=== PATIENT | male | born 1935 | race Caucasian/White ===

== ENCOUNTER → 2017-02-13 | Outpatient (CLI) | payer MEDICARE, OTHER ==
[~2017-02-13] MED LIST: ALPR0.254 PO; ALPR0.2550 PO; ASP81CT PO; ASP81TEC PO; BETA1TAB15 PO; CARB15DR87 OT; CHOL400T40 PO; CPR500T PO; CYAN10007 PO; CYAN500L PO; FEXO180T84 PO; GLUC-135 PO; MTP25TSR PO; MULT-961 PO; NEBI5TAB8 PO; OMEG1CAP74 PO; OMEP20TA2 PO; PROP15DR OP; PROP15DR OU; SIMV20TA3 PO; SIMV40TA4 PO; TAMS0.4C2 PO; UBID100C17 PO; VITAMIN D PO
--- NOTE | 2017-02-13 16:09 | Diagnostic Imaging Report ---
PROCEDURE: CT abdomen and pelvis without contrast. TECHNIQUE: Multiple contiguous axial images were obtained through the abdomen and pelvis without the use of intravenous contrast. INDICATION: Left lateral discomfort. FINDINGS: There are calcified pleural plaques seen in the left lung base. This could relate to previous infection. The liver demonstrates multiple hypodense lesions, with the largest in the right hepatic dome measuring 2.4 cm with fluid attenuation, suggestive of multiple cysts. The gallbladder demonstrates no calcified stone. The spleen, the pancreas, and the adrenal glands appear unremarkable. There is a 5 mm nonobstructive stone in the upper pole of the left kidney. No hydronephrosis. Bilateral renal cysts are seen up to 3 cm in the lower pole of the left kidney. The abdominal aorta is normal in caliber. No para-aortic significantly enlarged lymph node is seen. There is no bowel obstruction. The appendix is normal. There is no significant free fluid or fluid collection in the abdomen or pelvis seen. There is diverticulosis in the sigmoid colon. No diverticulitis. There is a small fat-containing left inguinal hernia. 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 IMPRESSION: 1. There is diverticulosis. No diverticulitis. 2. There is a 5 mm nonobstructive upper pole left kidney stone. 3. Small fat-containing left inguinal hernia. Dictated by: Dictated on workstation # [id number]
== END ==
LOC: RAD 14:08
PROVIDERS: ATTEND Internal Medicine
DX: R10.13 Epigastric pain (principal)
CPT/HCPCS: 74176

== ENCOUNTER 2020-02-07 05:35 | Outpatient (RCR) | payer MEDICARE, OTHER ==
[~2020-02-07] VITALS: Ht 154.9 cm; Wt 65.5 kg
[~2020-02-07 05:35] MED LIST changes: +CETI10TA17 PO; +CRAN450T9 PO; +CYAN100088 PO; +DOCU100T7 PO; +GARL100T PO; +METO50TA15 PO; +MULT-851 PO; +OMEP20CA18 PO; +SALM1CAP4 PO; +SIMV40TA25 PO; +UBID100C7 PO
== END 2020-02-07 10:28 | disposition home or self-care (01) ==
LOC: PREOP 05:35
PROVIDERS: ATTEND Surgery
DX: Z01.812 Encounter for preprocedural laboratory examination (principal); K40.90 Unilateral inguinal hernia, without obstruction or gangrene, not specified as recurrent; Z20.828 Contact with and (suspected) exposure to other viral communicable diseases
CPT/HCPCS: 87635

== ENCOUNTER 2020-02-10 12:17 | Day surgery (SDC) | payer MEDICARE, OTHER ==
[~2020-02-10] VITALS: Ht 154.9 cm; Wt 65.5 kg
[2020-02-10] VITALS (9 sets, daily range): BP systolic 137–194; BP diastolic 76–116
--- NOTE | 2020-02-10 12:44 | Progress Note-Pre Operative ---
Pre-Operative Progress Note H&P Reviewed The H&P was reviewed, patient examined and no changes noted. Date Seen by Provider: Feb 10, 2020 Time Seen by Provider: 12:30 Date H&P Reviewed: Feb 10, 2020 Time H&P Reviewed: 12:30 Pre-Operative Diagnosis: recurrent left ing hernia HOSEA LARA MD Feb 10, 2020 12:44
[2020-02-10] MEDS ORDERED: ceFAZolin 2 GM IV Premixed 50 ML IV ONE (12:45)
[2020-02-10] MEDS ORDERED: oxyCODONE/APAP 5/325MG (PERCOCET 5) TABLET PO PRN (12:45)
[2020-02-10] MEDS ORDERED: ACETAMINOPHEN 325 MG TABLET PO PRN (12:45)
[2020-02-10] MEDS ORDERED: ONDANSETRON 4 MG/2 ML (SDV) Z0FRAN IVP PRN ×2 (12:45→15:00)
[2020-02-10] MEDS ORDERED: morphine INJ 10 MG/ML 1ML (SYR OR VIAL) IVP PRN ×2 (12:45)
[2020-02-10] MEDS ORDERED: HYDR-3817 PO ×2 (12:46)
[2020-02-10] MEDS: LACTATED RINGERS 1,000 ML IV PRN ×3 (12:47→16:25)
--- NOTE | 2020-02-10 12:47 | Discharge Inst-Surgical ---
D/C Lap Instructions-JANE New, Converted, or Re-Newed RX: RX on Chart Follow Up Appt in 2 weeks Activity as tolerated No driving for 24 hours No driving while on pain medications Incentive Spirometry use every 2 hours while awake Regular Diet Symptoms to Report: Fever over 101 degree F, Nausea/Vomiting Infection Signs and Symptoms to report: Increased redness, Foul odor of wound, Increased drainage Bathing instructions: May shower Operative Area Clean/Dry; Keep incision clean/dry If any problems/questions: Contact your physician or go to Emergency Room HOSEA LARA MD Feb 10, 2020 12:46
[2020-02-10] MEDS ORDERED: fentaNYL INJECTION 100 MCG/2 ML AMP ONE (12:53)
[2020-02-10 12:55] LABS: BASOPHILS % (AUTO) 1 % (0-10); EOSINOPHILS # (AUTO) 0.1 10^3/uL (0.0-0.3); EOSINOPHILS % (AUTO) 3 % (0-10); HEMATOCRIT 45 % (40-54); HEMOGLOBIN 14.7 G/DL (13.3-17.7); LYMPHOCYTES # (AUTO) 1.9 X 10^3 (1.0-4.0); LYMPHOCYTES % (AUTO) 42 % (12-44); MEAN CORPUSCULAR HEMOGLOBIN 31 PG (25-34); MEAN CORPUSCULAR HGB CONC 33 G/DL (32-36); MEAN CORPUSCULAR VOLUME 93 FL (80-99); MEAN PLATELET VOLUME 10.7 FL (7.4-10.4); MONOCYTES # (AUTO) 0.3 X 10^3 (0.0-1.0); MONOCYTES % (AUTO) 6 % (0-12); NEUTROPHILS # (AUTO) 2.2 X 10^3 (1.8-7.8); NEUTROPHILS % (AUTO) 48 % (42-75); PLATELET COUNT 161 10^3/uL (130-400); RED CELL DISTRIBUTION WIDTH 14.3 % (10.0-14.5); WHITE BLOOD COUNT 4.5 10^3/uL (4.3-11.0)
[2020-02-10] MEDS ORDERED: LIDOCAINE PF 2% 5 ML (XYLOCAINE) VIAL ONE (12:57)
[2020-02-10] MEDS ORDERED: SEVOFLURANE (ULTANE) 15 ML INHAL SOLN ONE ×6 (12:57→16:17)
[2020-02-10] MEDS ORDERED: ROCURONIUM 10 MG/ML 5 ML SYRINGE IV ONE (12:57)
[2020-02-10] MEDS ORDERED: proPOfol 200 MG/20 ML (DIPRIVAN) VIAL IV ONE (12:57)
[2020-02-10] MEDS ORDERED: ONDANSETRON 4 MG/2 ML (SDV) Z0FRAN ONE ×2 (12:57→13:01)
[2020-02-10] MEDS ORDERED: GLYCOPYRROLATE 0.2 MG/ML (ROBINUL) 2 ML VIAL ONE (12:58)
[2020-02-10] MEDS ORDERED: NEOSTIGMINE 3 MG/3 ML VIAL ONE (12:58)
[2020-02-10] MEDS ORDERED: ONDANSETRON 4 MG/2 ML (SDV) Z0FRAN IV ONE (13:00)
[2020-02-10] MEDS ORDERED: FAMOTIDINE 20MG/2ML IV (PEPCID) IV ONE (13:00)
[2020-02-10] MEDS ORDERED: FAMOTIDINE 20MG/2ML IV (PEPCID) ONE (13:01)
--- OUTSIDE RECORDS SUMMARY | 2020-02-10 14:06 | XMS REPORT | Continuity of Care Document ---
Author [facility] Organization [facility] Address Unknown Phone Unavailable Care Team Providers Care Milk Treater Name Role Phone [facility] Unavailable Unavailable Problems Combined list of all problems from all [facility] of [facility] and [facility] facilities. It does not include entries that were removed or entered in error. 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 Some immunizations on record at [facility] may not be included. Immunization Series Date Given Administered By Site Reaction Lot Number CVX Code Drug Stave Saw Operator Status Comments Source INFLUENZA, WHOLE 05/06/2002 16 completed [facility] Results No Data Provided for This Section Vital Signs No Data Provided for This Section Encounters No Data Provided for This Section Procedures No Data Provided for This Section Social History Combined list of available smoking, tobacco, and other social history on record at [facility] of [facility] and/or [facility] facilities. The included entrie s comply with the patient's data sharing authorizations. Social History Type Response Date Comment Source Tobacco smoking status NHIS NON-TOBACCO USER 05/06/2002 [facility] History of tobacco use CURRE NT NON-SMOKER 05/06/2002 [facility] History of tobacco use LIFET ROSEANN NON-SMOKER 05/06/2002 [facility] History of tobacco use LIFET ROSEANN NON-TOBACCO USER 05/06/2002 [facility] History of tobacco use NON-S MOKER 05/06/2002 [facility] History of tobacco use NON-T OBACCO USER 05/07/2001 [facility] History of tobacco use CURRE NT NON-SMOKER 05/07/2001 [facility] History of tobacco use LIFET ROSEANN NON-SMOKER 05/07/2001 [facility] History of tobacco use LIFET ROSEANN NON-TOBACCO USER 05/07/2001 [facility] History of tobacco use NON-S MOKER 05/07/2001 [facility] Assessment and Plan No Data Provided for This Section Plan of Care No Data Provided for This Section Family History No Data Provided for This Section Advance Directives No Data Provided for This Section Functional Status No Data Provided for This Section
--- OUTSIDE RECORDS SUMMARY | 2020-02-10 14:06 | XMS REPORT | Continuity of Care Document ---
Author Organization Unknown Address Unknown Phone Unavailable Allergies Active Description Code Type Severity Reaction Onset Reported/Identified Relationship to Patient Clinical Status Yes Tetanus Vaccines Toxoid [id number] Drug Allergy Unknown FLU SYMPTOMS 05/14/2012 Yes Tetanus Vaccines and Toxoid [id number] Drug Allergy Unknown FLU SYMPTOMS 05/14/2012 Yes No Known Drug Allergies [id number] Drug Allergy Unknown N/A 02/03/2020 Medications There is no data. 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 4 CORONARY ATHEROSCLEROSIS DUE TO [place] 12/10/2012 SHAKIRA POLLARD MD Ot 477. 9 ALLERGIC RHINITIS NOS 12/10/2012 SHAKIRA POLLARD MD Ot 530. 81 ESOPHAGEAL REFLUX 12/10/2012 SHAKIRA POLLARD MD Ot 600. 90 HYPERPLASIA OF PROSTATE, UNSPEC, W/O URI 12/10/2012 SHAKIRA POLLARD MD Ot 715. 90 OSTEOARTHROS NOS-UNSPEC 12/10/2012 SHAKIRA POLLARD MD Ot 786. 50 CHEST PAIN NOS 12/10/2012 SHAKIRA POLLARD MD Ot V58. 66 LONG-TERM (CURRENT) USE OF ASPIRIN 12/10/2012 SHAKIRA POLLARD MD Ot V58. 69 OTH MED,LT,CURRENT USE 05/25/2014 Ot 477.9 05/25/2014 Ot 272.4 05/25/2014 Ot 401.9 05/25/2014 Ot 477.9 05/25/2014 Ot 600.00 05/25/2014 Ot 602.1 05/25/2014 Ot 600.00 05/25/2014 Ot V58.66 05/25/2014 Ot V72.63 05/25/2014 Ot V72.81 05/25/2014 Ot V74.8 05/25/2014 Ot 401.9 05/25/2014 Ot 600.00 05/25/2014 Ot V70.0 05/25/2014 DEBORAH WOO JUNIOR MARKETING ASSOCIATE Ot 729.5 05/25/2014 DEBORAH WOO JUNIOR MARKETING ASSOCIATE Ot 789.09 05/25/2014 DEBORAH WOO JUNIOR MARKETING ASSOCIATE Ot V45.89 05/25/2014 CHANEL THORNTON FAC, ALI FACP CCDS Ot 272.4 05/25/2014 CHANEL THORNTON FAC, ALI FACP CCDS Ot 414.01 05/25/2014 SARAH TO DC Ot 338. 29 05/25/2014 SARAH TO DC Ot 724. 2 08/15/2014 DAVID THORNTON, SHARRON Smith Ot 272.4 HYPERLIPIDEMIA NEC/NOS 08/15/2014 DAVID THORNTON, SHARRON Smith Ot 300.00 ANXIETY STATE NOS 08/15/2014 DAVID THORNTON, SHARRON Smith Ot 401.9 HYPERTENSION NOS 08/15/2014 DAVID THORNTON, SHARRON Smith Ot 562.10 DIVERTICULOSIS COLON (W/O MENT OF HEMORR 08/15/2014 DAVID THORNTON, SHARRON Smith Ot 715.90 OSTEOARTHROS NOS-UNSPEC 08/15/2014 SHARRON HERNANDEZ MD Ot V12.72 PERSONAL HISTORY OF COLONIC POLYPS 08/15/2014 DAVID THORNTON, SHARRON Smith Ot V16.0 FAMILY HX-GI MALIGNANCY 08/15/2014 DAVID THORNTON, SHARRON Smith Ot V67.09 SURGERY FOLLOW-UP, OTHER SURGERY 02/12/2016 Ot 477.9 ROLAN RGIC RHINITIS NOS 03/28/2016 Ot 477.9 ROLAN RGIC RHINITIS NOS 03/28/2016 Ot 272.4 HYPE RLIPIDEMIA NEC/NOS 03/28/2016 Ot 401.9 HYPE RTENSION NOS 03/28/2016 Ot 477.9 ROLAN RGIC RHINITIS NOS 03/28/2016 Ot 600.00 HYP ERTROPHY (BENIGN) 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 URI 03/28/2016 Ot 602.1 PROS TATIC CONGEST/HEMORR 03/28/2016 Ot 600.00 HYP ERTROPHY (BENIGN) 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 URI 03/28/2016 Ot V58.66 DOUG G-TERM (CURRENT) USE OF ASPIRIN 03/28/2016 Ot V72.63 PRE -PROCEDURAL LABORATORY EXAMINATION 03/28/2016 Ot V72.81 [id number] CARDIOVASCULAR 03/28/2016 Ot V74.8 SCRE EN-BACTERIAL DIS NEC 03/28/2016 Ot 401.9 HYPE RTENSION NOS 03/28/2016 Ot 600.00 HYP ERTROPHY (BENIGN) 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 URI 03/28/2016 Ot V70.0 ROUT INE MEDICAL EXAM 03/28/2016 BAIMADEBORAH L JUNIOR MARKETING ASSOCIATE Ot 729.5 PAIN IN LIMB 03/28/2016 BAIMA DEBORAH L JUNIOR MARKETING ASSOCIATE Ot 789.09 ABDOMINAL PAIN, OTHER SPECIFIED SITE 03/28/2016 BAITREASURE MCNEILLHER L JUNIOR MARKETING ASSOCIATE Ot V45.89 POSTSURGICAL STATES NEC 03/28/2016 CHANEL THORNTON FACC, ENOC BURDENP CCDS Ot 272.4 HYPERLIPIDEMIA NEC/NOS 03/28/2016 CHANEL THORNTON FACC, ALI FACP CCDS Ot 414.01 CORONARY ATHEROSCLEROSIS OF [place] CORON 03/28/2016 SARAH TO DC Ot 338. 29 OTHER CHRONIC PAIN 03/28/2016 SARAH TO DC Ot 724. 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 URI 09/10/2016 Ot V58.66 DOUG G-TERM (CURRENT) USE OF ASPIRIN 09/10/2016 Ot V72.63 PRE -PROCEDURAL LABORATORY EXAMINATION 09/10/2016 Ot V72.81 [id number]-[id number] CARDIOVASCULAR 09/10/2016 Ot V74.8 SCRE EN-BACTERIAL DIS NEC 09/10/2016 Ot 401.9 HYPE RTENSION NOS 09/10/2016 Ot 600.00 HYP ERTROPHY (BENIGN) 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 URI 09/10/2016 Ot V70.0 ROUT INE MEDICAL EXAM 09/10/2016 BAIMA DEBORAH L JUNIOR MARKETING ASSOCIATE Ot 729.5 PAIN IN LIMB 09/10/2016 BAIMA DEBORAH L JUNIOR MARKETING ASSOCIATE Ot 789.09 ABDOMINAL PAIN, OTHER SPECIFIED SITE 09/10/2016 DEBORAH WOO JUNIOR MARKETING ASSOCIATE Ot V45.89 POSTSURGICAL STATES NEC 09/10/2016 CHANEL THORNTON [facility], [facility] Ot 272.4 HYPERLIPIDEMIA NEC/NOS 09/10/2016 CHANEL THORNTON [facility], ALI FACP CCDS Ot 414.01 CORONARY ATHEROSCLEROSIS OF [place] CORON 09/10/2016 ZULEIKA CORA, SARAH J Ot 338. 29 OTHER CHRONIC PAIN 09/10/2016 ZULEIKA CORA, SARAH J Ot 724. 2 LUMBAGO 09/10/2016 DAVID THORNTON, SHARRON Smith Ot V72.84 EXAM PRE-OPERATIVE NOS 02/13/2017 COATS DO, NELLA J Ot R10.13 EPIGASTRIC PAIN 03/11/2017 COATS DO, NELLA J Ot R10.13 EPIGASTRIC PAIN 04/10/2017 COATS DO, NELLA J Ot R10.13 EPIGASTRIC PAIN 07/23/2018 CHANEL THORNTON FACC, [facility] CCD[facility] Ot 272.4 HYPERLIPIDEMIA NEC/NOS 07/23/2018 CHANEL THORNTON [facility], [facility] Ot 414.01 CORONARY ATHEROSCLEROSIS OF [place] CORON 07/23/2018 ZULEIKA SHEPHERD SARAH J Ot 338. 29 OTHER CHRONIC PAIN 07/23/2018 ZULEIKA SHEPHERD, SARAH J Ot 724. 2 LUMBAGO 07/23/2018 SHARRON HERNANDEZ MD Ot V72.84 EXAM PRE-OPERATIVE NOS 07/23/2018 COATS DO, NELLA J Ot R10.13 EPIGASTRIC PAIN 12/29/2018 ZULEIKA SHEPHERD, SARAH J Ot 338. 29 OTHER CHRONIC PAIN 12/29/2018 ZULEIKA SHEPHERD SARAH J Ot 724. 2 LUMBAGO 12/29/2018 SHARRON HERNANDEZ MD Ot V72.84 EXAM PRE-OPERATIVE NOS 12/29/2018 COATS DO, NELLA J Ot R10.13 EPIGASTRIC PAIN 05/05/2019 SHARRON HERNANDEZ MD Ot V72.84 EXAM PRE-OPERATIVE NOS 05/05/2019 COATS DO, NELLA J Ot R10.13 EPIGASTRIC PAIN 02/02/2020 COATS DO, NELLA J Ot R10.13 EPIGASTRIC PAIN 02/02/2020 COATS DO, NELLA J Ot R10.13 EPIGASTRIC PAIN Procedures There is no data. Results There is no data. Encounters ACCT No. Visit Date/Time Discharge Status Pt. Type Provider Facility Loc./Unit Complaint [id number] 02/07/2020 05:35:00 020 10:28:00 DIS Outpatient HOSEA LARA MD [facility] PREOP LEFT INGUINAL HERNIA [id number] 02/13/2017 14:08:00 017 23:59:59 CLS Outpatient NELLA COATS DO [facility] RAD R10.13 [id number] 08/15/2014 09:31:00 015 12:10:00 DIS Outpatient SHARRON HERNANDEZ MD [facility] SCREENING [id number] 08/10/2014 06:08:00 015 23:59:59 CLS Outpatient SHARRON HERNANDEZ MD [facility] PREOP SCREENING [id number] 10/26/2013 10:08:00 014 23:59:59 CLS Outpatient SARAH TO DC [facility] RAD LOW BACK PAIN [id number] 02/12/2013 06:33:00 013 23:59:59 CLS Outpatient CHANEL THORNOTN FACC, ENOC SHIN CC DS [facility] LAB STATIN RX,CAD,HYPERLIPIDEMIA [id number] 12/17/2012 15:27:00 013 23:59:59 CLS Outpatient DEBORAH WOO [facility] RAD RT GROIN SWELLING,S/P C ATH [id number] 12/09/2012 00:40:00 013 15:00:00 DIS Outpatient SHAKIRA POLLARD MD [facility] CATH CHEST PAIN [id number] 02/10/2020 13:00:00 P EN Preadmit HOSEA LARA MD [facility] LEFT INGUINAL HERNIA [id number] 05/25/2014 16:10:00 Document Registration [id number] 05/20/2012 06:00:00 Document Registration [id number] 05/14/2012 07:27:00 Document Registration [id number] 01/09/2012 06:08:00 Document Registration [id number] 01/08/2011 06:31:00 Document Registration [id number] 01/08/2011 06:20:00 Document Registration
[2020-02-10] MEDS ORDERED: fentaNYL INJECTION 100 MCG/2 ML AMP IVP ONE (15:00)
[2020-02-10] MEDS ORDERED: MEPERIDINE (DEMEROL) INJ 50 MG/ML IVP ONE (15:00)
[2020-02-10] MEDS ORDERED: morphine INJ 10 MG/ML 1ML (SYR OR VIAL) IVP ONE (15:00)
--- NOTE | 2020-02-10 15:56 | Progress Note-Post Operative ---
Post-Operative Progess Note Surgeon (s)/Aitchbone Breaker (s) Surgeon HOSEA LARA MD Aitchbone Breaker: gela rinaldi LICENSED MORTICIAN Pre-Operative Diagnosis recurrent left ing hernia Post-Operative Diagnosis recurrent left indirect inguinal hernia. right direct inguinal hernia. Procedure & Operative Findings Date of Procedure 02/10/20 Procedure Performed/Findings laparoscopic recurrent left inguinal hernia with mesh and right inguinal hernia with mesh. Anesthesia Type get Estimated Blood Loss Estimated blood loss (mL): minimal Specimens/Packing Specimens Removed none HOSEA LARA MD Feb 10, 2020 15:56
[2020-02-10] MEDS ORDERED: SUGAMMADEX 500 MG/5 ML VIAL (BRIDION) IV ONE (16:04)
[2020-02-10] MEDS ORDERED: hydrALAZINE (APESOLINE) 20 MG/ML VIAL ONE (16:09)
[2020-02-10] MEDS ORDERED: LABETALOL HCL 20 MG/4 ML VIAL ONE (16:17)
[2020-02-10] MEDS ORDERED: hydrALAZINE (APESOLINE) 20 MG/ML VIAL IV PRN (16:30)
--- NOTE | 2020-02-10 17:08 | NUR ---
PT O2 SAT DOWN TO 91% ON ROOM AIR, PT AWAKENED AND TOLD TO TAKE DEEP BREATHS, O2 SAT REMAINED AT 91 %. O2 PLACED AT 2L/MASK. SAT UP TO 96%. RT CALLED TO DO IS WITH PT.
--- NOTE | 2020-02-10 17:24 | NUR ---
O2 OFF WHILE DOING IS. AFTER IS TEACHING, PT MORE AWAKE AND O2 SAT 96-99%. O2 LEFT OFF AT THIS TIME.
[2020-02-10] MEDS ORDERED: HYDROcodone/APAP 7.5 MG/325 MG (LORTAB, LORCET PLUS) TABLET PO ONE ×2 (17:48→18:00)
[2020-02-10] MEDS ORDERED: BISACODYL 5 MG (DULCOLAX) TABLET PO ONE (18:00)
--- NOTE | 2020-02-10 18:27 | OPERATIVE REPORT ---
DATE OF SERVICE: 02/10/2020 ATTENDING PRIMARY CARE PHYSICIAN: Dr. Andrew Unger. PREOPERATIVE DIAGNOSES: Symptomatic recurrent left inguinal hernia, possible right inguinal hernia. POSTOPERATIVE DIAGNOSES: Recurrent left indirect inguinal hernia, right direct inguinal hernia. PROCEDURE: Laparoscopic recurrent left inguinal hernia repair with mesh. Right inguinal hernia repair with mesh. SURGEON: Hosea Lara MD CORE MACHINE OPERATOR: Aubrey Humphries APRN. ANESTHESIA: General endotracheal. ESTIMATED BLOOD LOSS: Minimal. FINDINGS: Recurrent left indirect inguinal hernia, right direct inguinal hernia. DISPOSITION: The patient tolerated the procedure well. INDICATIONS: The patient is an 84-year-old male who has had pain as well as a palpable bulge in the left inguinal region for the past few weeks. He was riding in his car for several hours and developed pain and discomfort in the region and he had stated that he had similar symptoms as when he did have a previous left inguinal hernia. He was seen in the office and found to have a recurrent left inguinal hernia. He also does report that he has had a pain and a bulge in the right inguinal region, which has not been as severe, however, present. He is otherwise eating well and having normal bowel movements. DESCRIPTION OF PROCEDURE: The patient was brought to the operating room, laid supine on the table. After adequate IV pain and sedative medications and general endotracheal intubation, the abdomen was prepped and draped in standard surgical fashion. A 0.5% Marcaine with epinephrine was then used to anesthetize the infraumbilical rim and a transverse skin incision made using a 15 blade. A sharp towel clamp was then applied and the abdominal wall retracting anteriorly. A Veress needle inserted with a low opening pressure of 0 mmHg and the abdomen was then insufflated to 15 mmHg pressure. The Veress needle removed and a 10 mm XL trocar placed followed by a 10 mm 45-degree angle laparoscope, visualizing the peritoneal cavity. A 4-quadrant abdominal exploration was performed. There were omental adhesions towards the abdominal wall, which were taken down bluntly as well as using electrocautery. A recurrent left indirect inguinal hernia was identified. The previous hernia mesh was also identified; however, the indirect inguinal hernia component had slipped underneath the edge of the mesh. There was also a right direct inguinal hernia with nothing within the hernia sac. Under direct visualization, we then proceeded to place bilateral 5 mm ports after the skin and peritoneal lining were anesthetized using 0.5% Marcaine with epinephrine and a transverse skin incision made using a 15 blade. The patient was then placed in Trendelenburg position. We first proceeded with repair of the recurrent left inguinal hernia. The peritoneal lining was then opened laterally towards the conjoined tendon and inguinal ligament. We then proceeded medially towards the Mendoza's ligament. We were just underneath the inferior edge of the previous hernia mesh and we then proceeded with inferior dissection of the hernia sac using blunt dissection as well as the Sonicision with visualization of good hemostasis. The cord and its surrounding contents identified and spared throughout the process. A 3DMax medium left-sided polypropylene mesh was then placed through the 10 mm port site and tacked to Mendoza's ligament medially and the conjoint tendon laterally with absorbable tacks. The peritoneal lining was then placed over the mesh and a few tacks placed to hold this in place with visualization of good hemostasis. We then proceeded with repair of the right direct inguinal hernia. In a similar fashion, the peritoneal lining was opened laterally using a Sonicision towards the conjoined tendon and inguinal ligament. We then proceeded medially towards Mendoza's ligament. We then proceeded with inferior dissection including the hernia sac. The cord and its surrounding contents identified and spared throughout the process. A 3DMax right-sided polypropylene mesh was then placed through the 10 mm port site and tacked to Mendoza's ligament medially with absorbable tacks and the conjoint tendon laterally. The peritoneal lining was then placed over the mesh and a few tacks placed to hold this in place with visualization of good hemostasis. The 10 mm port site fascia and peritoneum were then closed under direct visualization using a Jann-Joshua device and 0 Vicryl suture. The abdomen was desufflated and the remaining ports removed. All skin incisions were closed using 4-0 Monocryl running subcuticular sutures. Wounds were then cleaned and covered with Dermabond. The patient tolerated the procedure well. We will start IV normal pain medication as well as a clear liquid diet. Once he is tolerating clears, has good pain control with oral pain medications, ambulating well, we will discharge him home. He will be instructed to do no heavy lifting or exertion for the next six weeks and to apply a groin and scrotal support at all times. Job ID: [id number] DocumentID: [id number] Dictated Date: 02/10/2020 16:09:02 Franchise Sales Manager Date: 02/10/2020 18:26:43 Dictated By: HOSEA LARA MD MTDD
[2020-02-11] MEDS ORDERED: ONDA8TAB13 PO (14:11)
[2020-02-11] MEDS ORDERED: CEFU250T80 PO (14:11)
== END 2020-02-10 18:35 | disposition home or self-care (01) ==
LOC: SDC 12:17
PROVIDERS: ATTEND Surgery
DX: K40.91 Unilateral inguinal hernia, without obstruction or gangrene, recurrent (principal); K40.90 Unilateral inguinal hernia, without obstruction or gangrene, not specified as recurrent; Z11.2 Encounter for screening for other bacterial diseases; N40.0 Benign prostatic hyperplasia without lower urinary tract symptoms; K21.9 Gastro-esophageal reflux disease without esophagitis; I10 Essential (primary) hypertension; E78.00 Pure hypercholesterolemia, unspecified; Z79.82 Long term (current) use of aspirin; M06.9 Rheumatoid arthritis, unspecified; E78.5 Hyperlipidemia, unspecified; Z87.891 Personal history of nicotine dependence; Z79.899 Other long term (current) drug therapy
CPT/HCPCS: 49650; 49651; 85025; 87081; C1781 ×2; 36415

== ENCOUNTER 2020-02-11 12:02 | Emergency (ER) | payer MEDICARE, OTHER ==
[~2020-02-11] VITALS: Ht 152.4 cm; Wt 65.8 kg
[~2020-02-11 12:02] MED LIST changes: +HYDR-3817 PO
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
[2020-02-11 12:39] LABS: BASOPHILS % (AUTO) 0 % (0-10); EOSINOPHILS % (AUTO) 0 % (0-10); HEMATOCRIT 41 % (40-54); HEMOGLOBIN 13.9 G/DL (13.3-17.7); LYMPHOCYTES # (AUTO) 1.3 X 10^3 (1.0-4.0); LYMPHOCYTES % (AUTO) 13 % (12-44); MEAN CORPUSCULAR HEMOGLOBIN 31 PG (25-34); MEAN CORPUSCULAR HGB CONC 34 G/DL (32-36); MEAN CORPUSCULAR VOLUME 92 FL (80-99); MEAN PLATELET VOLUME 10.5 FL (7.4-10.4); MONOCYTES # (AUTO) 0.8 X 10^3 (0.0-1.0); MONOCYTES % (AUTO) 8 % (0-12); NEUTROPHILS # (AUTO) 7.9 X 10^3 (1.8-7.8); NEUTROPHILS % (AUTO) 79 % (42-75); PLATELET COUNT 174 10^3/uL (130-400); RED CELL DISTRIBUTION WIDTH 14.5 % (10.0-14.5)
[2020-02-11] MEDS ORDERED: NS IV 500 ML 500 ML ONE (12:40)
[2020-02-11] MEDS: NS IV 500 ML 500 ML IV SCH (12:45)
[2020-02-11 12:51] LABS: POTASSIUM 4.3 MMOL/L (3.6-5.0)
[2020-02-11 12:52] LABS: CALCIUM 9.6 MG/DL (8.5-10.1)
[2020-02-11 12:57] LABS: CREATININE SERUM 1.27 MG/DL (0.60-1.30)
[2020-02-11] MEDS ORDERED: ONDANSETRON 4 MG (ZOFRAN) ORAL DISSOLVE TAB PO ONE (13:30)
[2020-02-11 13:37] LABS: BILIRUBIN,URINE NEGATIVE (NEGATIVE); CLARITY,URINE SL CLOUDY; COLOR,URINE YELLOW; GLUCOSE, URINE (UA) NEGATIVE (NEGATIVE); KETONES,URINE TRACE (NEGATIVE); LEUKOCYTE ESTERASE ,URINE NEGATIVE (NEGATIVE); NITRITE,URINE NEGATIVE (NEGATIVE); PROTEIN,URINE TRACE (NEGATIVE)
--- NOTE | 2020-02-11 13:38 | NUR ---
Contacted pt , Mayra, regarding pt findings et care recieved while in ED care. Mayra voices no c/o or concerns. ([phone])
[2020-02-11 13:51] LABS: BACTERIA,URINE TRACE /HPF
[2020-02-11] MEDS ORDERED: ONDA8TAB13 PO (14:11)
[2020-02-11] MEDS ORDERED: CEFU250T80 PO (14:11)
[2020-02-11] MEDS ORDERED: cefTRIAXone FOR IV USE 1,000 MG in WATER (STERILE) FOR INJECTION 10 ML IV ONE (14:15)
[2020-02-11 14:17] VITALS: BP 164/102
--- OUTSIDE RECORDS SUMMARY | 2020-02-11 17:33 | XMS REPORT | Continuity of Care Document ---
[facility] Address Unknown Phone Unavailable Care Team Providers Care Credit Verifier Name Role Phone [facility] Unavailable Unavailable Problems Combined list of all problems from all Department of [facility] and [facility] facilities. It does not include entries that were removed or entered in error. 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 Some immunizations on record at [facility] may not be included. Immunization Series Date Given Administered By Site Reaction Lot Number CVX Code Drug Machine Puller Status Comments Source INFLUENZA, WHOLE 05/06/2002 16 completed [facility] Results No Data Provided for This Section Vital Signs No Data Provided for This Section Encounters No Data Provided for This Section Procedures No Data Provided for This Section Social History Combined list of available smoking, tobacco, and other social history on record at Department of [facility] and/or [facility] facilities. The included entrie s comply with [...]
--- OUTSIDE RECORDS SUMMARY | 2020-02-11 17:33 | XMS REPORT ---
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 Name Role Phone NELLA COATS Unavailable ZULEIKA SHEPHERD, SARAH Agarwal Unavailable Unavailable SHARRON HERNANDEZ MD Unavailable Unavailable CHANEL THORNTON FACC, ENOC SHIN CCDS Unavailable UnavailDEBORAH Carbajal Unavailable Unavailable JIM CHRISTIANSEN MD Unavailable Unavailable HSAKIRA POLLARD MD Unavailable Unavailable NELLA COATS DO Unavailable Unavailable SARAH TO DC Unavailable Unavailable SHARRON HERNANDEZ MD Unavailable Unavailable NELLA COATS DO Unavailable Unavailable HOSEA LARA MD Unavailable Unavailable SARAH HERBERT MD Unavailable Unavailable CAITLYN LUGO APRN Unavailable Unavailable Unavailable Unavailable Unavailable Unavailable Unavailable Unavailable Allergies Allergy Reported Allergen(s) Allergy Type Date of Reaction(s) Care Facility Classificati Onset Provider on Unclassified Tetanus Vaccines and DA 05-14-2012 FLU SYMPTOM S NELLA Alas (27 sources) Toxoid PAULY VIEIRA Available ([id number]) Encounters Encounter Date Encounter Type Encounter Diagnosis Care Provider Facility Start: Emergency department SARAH HERBERT MD [facility] 02-11-2020 patient visit [facility] End: 02-11-2020 Start: Patient encounter HOSEA LARA MD [facility] 02-10-2020 procedure [facility] End: 02-10-2020 Start: Patient encounter HOSEA LARA MD [facility] 02-07-2020 [facility] End: 02-07-2020 Start: Patient encounter HOSEA LARA MD [facility] 02-03-2020 [facility] Start: Patient encounter 02-13-2017 procedure Start: Patient encounter NELLA COATS DO [facility] 02-13-2017 [facility] Start: Patient encounter SHARRON HENRANDEZ MD Not Avai lable ([id number]) 08-15-2014 procedure End: 08-15-2014 Start: Patient encounter SHARRON HERNANDEZ MD [facility] 08-15-2014 procedure [facility] End: 08-15-2014 Start: Patient encounter SARAH TO DC Not Availa ble ([id number]) 10-26-2013 procedure Start: Patient encounter ENOC BUCHANAN MD [facility] Not Ann-Marie ilable ([id number]) 02-12-2013 procedure Start: Patient encounter DEBORAH WOO Not Availab le ([id number]) 12-17-2012 procedure Start: Patient encounter SHAKIRA POLLARD MD Not Availa ble ([id number]) 12-09-2012 procedure End: 12-10-2012 Start: Patient encounter JIM CHRISTIANSEN MD Not Availab le ([id number]) 05-20-2012 procedure End: 05-22-2012 Start: Patient encounter JIM CHRISTIANSEN MD Not Availab le ([id number]) 05-14-2012 procedure Start: Patient encounter NELLA COATS DO Not Av ailable ([id number]) 01-09-2012 procedure Pre-operative SHARRON HERNANDEZ MD [facility] examination, [facility] unspecified ([id number]) Pre-procedural JIM CHRISTIANSEN MD Not Available (0000 0) laboratory examination Routine general NELLA COATS DO Not Available (000 00) medical examination at a health care facility Medical Equipment No Information Goals No Information Immunizations No Information Interventions No Information Medications No Information Payers The data below is from unstructured sources Payer Name Policy Number Subscriber Name Relationship [facility] [id number] Radha Mejia 02 Wps Medicare [id number] Nella Mejia Stefano 01 Self / Same As Patient Plan of Treatment The data below is from unstructured sourcesNo plan of care. Problems Active Problems Problem Problem Date Last Documented Episodic/Chr Provider Classificati Recorded Date onic on Abdominal Epigastric pain ; Translations: 02-02-2020 Episodi c DEBORAH pain [Abdominal pain, other specified BA ENEDINA (15 sources) site] Anxiety Anxiety state, unspecified 02-02-2020 Chronic SHARRON HERNANDEZ MD (10 sources) Coronary Coronary atherosclerosis of [place] Chronic SHAKIRA POLLARD atherosclero coronary artery ; Translations: sis and [Coronary atherosclerosis d ue to other heart calcified coronary lesion] disease (4 sources) Disorders of Other and unspecified 02-02-2020 Chronic BAS MARIPOSA LATRICE lipid hyperlipidemia MD metabolism (13 sources) Diverticulos Diverticulosis of colon (without 02-02-2020 Chron ic SHARRON is and mention of hemorrhage) DAVID THORNTON diverticulit is (10 sources) Esophageal Esophageal reflux Chronic BASHAR MAR JI disorders (1 source) Essential Unspecified essential hypertension 02-02-2020 Acute Dialysis Registered Nurse dewey NELLA hypertension COATS DO (11 sources) Hyperplasia Hypertrophy (benign) of prostate Chronic NELLA of prostate without urinary obstruction and SUL BRIELLE DO (4 sources) other lower urinary tract s ymptom (LUTS) ; Translations: [Hyperplasia of prostate, unspecified, without urinary obstruction and other lower urinary symptoms (LUTS)] Osteoarthrit Osteoarthrosis, unspecified whether 02-02-2020 Ch ronic BASHAR LATRICE is generalized or localized, site (11 sources) unspecified Other Follow-up examination, following 02-02-2020 Episod ic SHARRON aftercare other surgery DAVID THORNTON (10 sources) Other and Personal history of colonic polyps 02-02-2020 Epis odic SHARRON unspecified DAVID THORNTON benign neoplasm (10 sources) Other Other chronic pain Chronic SARAH V OSS nervous DC system disorders (3 sources) Other upper Allergic rhinitis, cause Chronic BAS MARIPOSA LATRICE respiratory unspecified MD disease (1 source) Residual Family history of malignant 02-02-2020 Episodic SHARRON codes; neoplasm of gastrointestinal tract DAVID THORNTON unclassified (10 sources) Past or Other Problems Problem Problem Date Last Documented Episodic/Chr Provider Classificati Recorded Date onic on Immunization Screening examination for other Episodic JIM KULDIP s and specified bacterial and spirochetal screening diseases for infectious disease (1 source) Inflammatory Prostatitis, unspecified Episodic ROYA KULDIP conditions MD of male genital organs (1 source) Nonspecific Chest pain, unspecified Episodic BASH AR LATRICE chest pain (1 source) Other Long-term (current) use of aspirin Episodic JIM KULDIP aftercare (3 sources) Other Long-term (current) use of other Episodic BASHAR LATRICE aftercare medications (1 source) Other Pain in limb Episodic DEBORAH connective BAIMA tissue disease (1 source) Residual Other postprocedural status Episodic DEBORAH codes; BAIMA unclassified (1 source) Spondylosis; Lumbago Episodic SARAH ZULEIKA intervertebr DC al disc disorders; other back problems (3 sources) Procedures No Information Results Test Name Value Interpreta Reference Facilit Date tion Range y Time laboratory on 2020-02-11 Anion gap 15 mmol/L High 5-14 PENDING [Moles/Vol] mmol/L [facility] 08:20-0 ([id number]) 400 Bacteria LM Ql TRACE Invalid PENDING (Urine sed) Interpreta [facility] 020 tion Code N [facility] 09:24-0 ([id number]) 400 Basophils (Bld) 0.0 10*3/uL Negative 0.0-0.1 PENDING 02-10 [#/Vol] 10*3/uL [facility] 08:20-0 ([id number]) 400 Basophils/100 WBC 0 % Negative 0-10 % PENDING 02-10 (Bld) [facility] 08:20-0 ([id number]) 400 Bilirubin Ql (U) Negative Invalid NEGATIVE PENDING Interpreta [facility] 020 tion Code N [facility] 09:24-0 ([id number]) 400 Calcium [Mass/Vol] 9.6 mg/dL Negative 8.5-10.1 PENDING 01-13 1-2 mg/dL [facility] 0[facility] 08:20-0 ([id number]) 400 Casts LM Ql (Urine PRESENT Invalid PENDING sed) Interpreta [facility] 020 tion Code N [facility] 09:24-0 ([id number]) 400 Chloride [Moles/Vol] 101 mmol/L Negative 98-107 PENDING 0 7-31-2 mmol/L [facility] 08:20-0 ([id number]) 400 Clarity (U) SL CLOUDY Invalid PENDING Interpreta [facility] 020 tion Code N [facility] 09:24-0 ([id number]) 400 CO2 [Moles/Vol] 21 mmol/L Negative 21-32 PENDING mmol/L [facility] 08:20-0 ([id number]) 400 Color (U) YELLOW Invalid PENDING Interpreta [facility] 020 tion Code N [facility] 09:24-0 ([id number]) 400 Creatinine 1.27 mg/dL Negative 0.60-1.30 PENDING [Mass/Vol] mg/dL [facility] 08:20-0 ([id number]) 400 Creatinine and 54 Invalid PENDING Glomerular Interpreta [facility] 020 filtration tion Code N [facility] 08:20-0 rate.predicted panel ([id number]) 400 - Serum, Plasma or Blood Crystals LM Ql NONE Invalid PENDING (Urine sed) Interpreta [facility] 020 tion Code N [facility] 09:24-0 ([id number]) 400 Eosinophils (Bld) 0.0 10*3/uL Negative 0.0-0.3 PENDING [#/Vol] 10*3/uL [facility] 08:20-0 ([id number]) 400 Eosinophils/100 WBC 0 % Negative 0-10 % PENDING (Bld) [facility] 08:20-0 ([id number]) 400 Erythrocyte 14.5 % Negative 10.0-14.5 PENDING distribution width % [facility] 020 (RBC) [Ratio] [facility] 08:20-0 ([id number]) 400 Glucose [Mass/Vol] 142 mg/dL High 70-105 PENDING 01-13 1-2 mg/dL [facility] 08:20-0 ([id number]) 400 Glucose Auto test Negative Invalid NEGATIVE PENDING 02-10 strip Ql (U) Interpreta [facility] 020 tion Code N [facility] 09:24-0 ([id number]) 400 Hematocrit (Bld) 41 % Negative 40-54 % PENDING [Volume fraction] [facility] 08:20-0 ([id number]) 400 Hemoglobin (Bld) 13.9 g/dL Negative 13.3-17.7 PENDING [Mass/Vol] g/dL [facility] 08:20-0 ([id number]) 400 Hyaline casts LM Ql 10-25 Abnormal PENDING (Urine sed) [facility] 09:24-0 ([id number]) 400 Ketones Auto test TRACE Abnormal NEGATIVE PENDING 02-10 strip Ql (U) [facility] 09:24-0 ([id number]) 400 Leukocyte esterase Negative Invalid NEGATIVE PENDING 01-13 Test strip Ql (U) Interpreta LOCHEYDIO Yadiel tion Code N [facility] 09:24-0 ([id number]) 400 Lymphocytes (Bld) 1.3 10*3/uL Negative 1.0-4.0 PENDING [#/Vol] 10*3 [facility] 08:20-0 ([id number]) 400 Lymphocytes/100 WBC 13 % Negative 12-44 % PENDING (Bld) [facility] 0[facility] 08:20-0 ([id number]) 400 MCH (RBC) [Entitic 31 pg Negative 25-34 pg PENDING 01-13- mass] [facility] 020 [facility] 08:20-0 ([id number]) 400 MCHC (RBC) 34 g/dL Negative 32-36 g/dL PENDING [Mass/Vol] [facility] 0[facility] 08:20-0 ([id number]) 400 MCV (RBC) [Entitic 92 Negative 80-99 PENDING 01-13 1-2 vol] [foz_us] [facility] 0[facility] 08:20-0 ([id number]) 400 Monocytes (Bld) 0.8 10*3/uL Negative 0.0-1.0 PENDING 02-10 [#/Vol] 10*3 [facility] 020 [facility] 08:20-0 ([id number]) 400 Monocytes/100 WBC 8 % Negative 0-12 % PENDING 02-10 (Bld) [facility] 0[facility] 08:20-0 ([id number]) 400 Mucus Ql (Urine sed) MODERATE Abnormal PENDING 02-10 [facility] 020 [facility] 09:24-0 ([id number]) 400 Neutrophils (Bld) 7.9 10*3/uL High 1.8-7.8 PENDING [#/Vol] 10*3 [facility] 020 [facility] 08:20-0 ([id number]) 400 Neutrophils/100 WBC 79 % High 42-75 % PENDING (Bld) [facility] 020 [facility] 08:20-0 ([id number]) 400 Nitrite Ql (U) Negative Invalid NEGATIVE PENDING Interpreta [facility] 020 tion Code N [facility] 09:24-0 ([id number]) 400 pH (U) 6.0 [pH] Invalid 5-9 PENDING Interpreta [facility] 020 tion Code N [facility] 09:24-0 ([id number]) 400 Platelet mean volume 10.5 High 7.4-10.4 PENDING (Bld) [Entitic vol] [foz_us] [facility] 020 N S 08:20-0 ([id number]) 400 Platelets (Bld) 174 10*3/uL Negative 130-400 PENDING 02-10 [#/Vol] 10*3/uL [facility] 08:20-0 ([id number]) 400 Potassium 4.3 mmol/L Negative 3.6-5.0 PENDING [Moles/Vol] mmol/L [facility] 08:20-0 ([id number]) 400 Protein Ql (U) TRACE Abnormal NEGATIVE PENDING [facility] 09:24-0 ([id number]) 400 RBC (Bld) [#/Vol] 4.50 10*6/uL Negative 4.35-5.85 PENDING 10*6/uL [facility] 08:20-0 ([id number]) 400 RBC LM.HPF (Urine Abnormal PENDING sed) [#/Area] [facility] 09:24-0 ([id number]) 400 RBC Ql (U) Negative Invalid NEGATIVE PENDING Interpreta [facility] 020 tion Code N [facility] 09:24-0 ([id number]) 400 Sodium [Moles/Vol] 137 mmol/L Negative 135-145 PENDING mmol/L [facility] 020 N S 08:20-0 ([id number]) 400 Specific gravity (U) 1.025 Abnormal 1.016-1.02 PENDING 0 [Rel density] 2 [facility] 020 N S 09:24-0 ([id number]) 400 Urea nitrogen 19 mg/dL High 7-18 mg/dL PENDING [Mass/Vol] [facility] 08:20-0 ([id number]) 400 Urea 15 mg/mg Invalid PENDING nitrogen/Creatinine Interpreta [facility] 020 [Mass ratio] tion Code N [facility] 08:20-0 ([id number]) 400 Urinalysis complete YES Invalid PENDING W Reflex Culture Interpreta [facility] 020 panel - Urine tion Code N [facility] 09:24-0 ([id number]) 400 Urobilinogen (U) 0.2 mg/dL Invalid < = 1.0 PENDING [Mass/Vol] Interpreta mg/dL [facility] 020 tion Code N [facility] 09:24-0 ([id number]) 400 WBC (Bld) [#/Vol] 10.0 10*3/uL Negative 4.3-11.0 PENDING 10*3/uL [facility] 020 N S 08:20-0 ([id number]) 400 WBC LM.HPF (Urine Abnormal PENDING sed) [#/Area] [facility] 09:24-0 ([id number]) 400 not yet categorized on 2020-02-10 NAME: NELLA MEJIA ~MED REC#: [id number] Invalid PENDING ~ ~CARE PROVIDER: HOSEA Miller MD ~Post-Operative Progess Note tion Code N [facility] ~Surgeon (s)/Director Search (s) ~Surgeon ~HOSEA (0000 0) JANE THORNTON ~Director Search: gela rinaldi CABLE MAKER ~ ~Pre-Operative Diagnosis ~recurrent lef t ing hernia ~ ~Post-Operative Diagnosis ~ ~recurrent left indirect inguinal herni a. right direct inguinal hernia. ~ ~Proced ure Operative Findings ~Date of Procedure ~02/10/20 ~Procedure Performed/Findings ~laparoscopic recurrent left inguinal h ernia with mesh and right inguinal hernia wit h mesh. ~Anesthesia Type ~get ~ ~Estimate d Blood Loss ~Estimated blood loss (mL): minimal ~ ~Specimens/Packing ~Specimens Removed ~none ~ ~ ~ ~HOSEA LARA MD Ju l 2019 15:56 ~ ~ ~<Created by HOSEA Mota MD> ~<Electronically signed by HOSEA LARA MD> 02/10/20 1556 ~ ~ laboratory on 2020-02-10 Basophils (Bld) 0.0 10*3/uL Negative 0.0-0.1 PENDING 02-09 [#/Vol] 10*3/uL [facility] 020 [facility] 08:38-0 ([id number]) 400 Basophils/100 WBC 1 % Negative 0-10 % PENDING 02-09 (Bld) [facility] 0[facility] 08:38-0 ([id number]) 400 Eosinophils (Bld) 0.1 10*3/uL Negative 0.0-0.3 PENDING [#/Vol] 10*3/uL [facility] 020 [facility] 08:38-0 ([id number]) 400 Eosinophils/100 WBC 3 % Negative 0-10 % PENDING (Bld) [facility] 020 [facility] 08:38-0 ([id number]) 400 Erythrocyte 14.3 % Negative 10.0-14.5 PENDING distribution width % [facility] 020 (RBC) [Ratio] [facility] 08:38-0 ([id number]) 400 Hematocrit (Bld) 45 % Negative 40-54 % PENDING [Volume fraction] [facility] 08:38-0 ([id number]) 400 Hemoglobin (Bld) 14.7 g/dL Negative 13.3-17.7 PENDING [Mass/Vol] g/dL [facility] 020 [facility] 08:38-0 ([id number]) 400 Lymphocytes (Bld) 1.9 10*3/uL Negative 1.0-4.0 PENDING [#/Vol] 10*3 [facility] 020 [facility] 08:38-0 ([id number]) 400 Lymphocytes/100 WBC 42 % Negative 12-44 % PENDING (Bld) [facility] 020 [facility] 08:38-0 ([id number]) 400 MCH (RBC) [Entitic 31 pg Negative 25-34 pg PENDING - 0-2 mass] [facility] 020 [facility] 08:38-0 ([id number]) 400 MCHC (RBC) 33 g/dL Negative 32-36 g/dL PENDING [Mass/Vol] [facility] 020 [facility] 08:38-0 ([id number]) 400 MCV (RBC) [Entitic 93 Negative 80-99 PENDING - 0-2 vol] [foz_us] [facility] 020 [facility] 08:38-0 ([id number]) 400 Monocytes (Bld) 0.3 10*3/uL Negative 0.0-1.0 PENDING 02-09 [#/Vol] 10*3 [facility] 020 [facility] 08:38-0 ([id number]) 400 Monocytes/100 WBC 6 % Negative 0-12 % PENDING 02-09 (Bld) [facility] 020 [facility] 08:38-0 ([id number]) 400 MRSA isol Org Negative Invalid PENDING specific cx Ql (Unsp Interpreta [facility] 020 spec) tion Code N [facility] 08:38-0 ([id number]) 400 Neutrophils (Bld) 2.2 10*3/uL Negative 1.8-7.8 PENDING [#/Vol] 10*3 [facility] 08:38-0 ([id number]) 400 Neutrophils/100 WBC 48 % Negative 42-75 % P[facility] (Bld) [facility] 08:38-0 ([id number]) 400 Platelet mean volume 10.7 High 7.4-10.4 PENDING (Bld) [Entitic vol] [foz_us] [facility] 020 [facility] 08:38-0 ([id number]) 400 Platelets (Bld) 161 10*3/uL Negative 130-400 PENDING 02-09 [#/Vol] 10*3/uL [facility] 020 [facility] 08:38-0 ([id number]) 400 RBC (Bld) [#/Vol] 4.80 10*6/uL Negative 4.35-5.85 PENDING 10*6/uL [facility] 020 [facility] 08:38-0 (82537) 400 WBC (Bld) [#/Vol] 4.5 10*3/uL Negative 4.3-11.0 PENDING 10*3/uL [facility] 020 [facility] 08:38-0 ([id number]) 400 Social History The data below is from unstructured sources History Response Recorde d Date/Time Hx Family Cancer Y FATHER COLON CA; BROTHER LUNG CA; BROTHER KIDNEY CA 12/09/12 2:00am Hx Family Lung Cancer Y BROTHER 12/09/12 2:00am Hx Family Colorectal Cancer Y FATHER 12/09/12 2:00am History Response Recorde d Date/Time Alcohol Use Occasionally Uses 12/09/12 1:03am Recreational Drug Use N 12/09/12 1:03am History Response Recorde d Date/Time Alcohol Use Occasionally Uses 12/09/12 1:03am Recreational Drug Use N 12/09/12 1:03am Vital Signs The data below is from unstructured sources Vital Response Date/Time Temperature (Fahrenheit) 97.8 degree s F (97.6 - 99.5) Temperature (Calculated Celsius) 36. 78970 degrees C (36.4 - 37.5) Temperature Source Tympanic Pulse Rate (adult) 75 bpm (60 - 90) Respiratory Rate 18 bpm (12 - 24) O2 Sat by Pulse Oximetry 95 % (88 - 100) Blood Pressure 120/70 mm Hg Pain Pain Intensity 0 Height (Feet) 5 feet Height (Inches) 1.00 inches Height (Calculated Centimeters) 154. 894052 cm Weight (Pounds) 150 pounds Weight (Calculated Grams) 24070.856 gm Weight (Calculated Kilograms) 68.038 856 kilograms Calculated BMI 28.34 Functional Status The data below is from unstructured sourcesNo functional status results. Mental Status No Information Clinical Note Note Date & Note Facility Type Note NAME: NELLA MEJIA [facility] REC#: [id number] ~ PENDING LOCATION [facility] ~CARE PROVIDER: HOSEA LARA MD ~Pre-Operative Progre ss Note ~H P (79039) Reviewed ~The H P was reviewed, patient examined and no changes noted. ~Date Seen by Provider: Feb 10, 2020 ~Time Seen by Provider: 12:30 ~Date H P Reviewed: Feb 10, 2020 ~Time H P Reviewed: 12:30 ~Pre-Operative Diagnosi s: recurrent left ing hernia ~ ~ ~ ~HOSEA LARA MD Feb 09 020 12:44 ~ ~ ~<Created by HOSEA LARA MD> ~<Electronically sid d by HOSEA LARA MD> 02/10/20 1244 ~ ~ Advance Directives Directive Response Recor ded Date Advance Directives N 2:00am Health Care Power of Screen Door Maker N 12/09/12 2:00am Organ Donor Y 12/09/12 2 :00am Directive Response Recor ded Date/Time Advance Directives No 10:20am Health Care Power of Screen Door Maker No 08/15/14 10:20am Organ Donor No 08/15/14 10:20am Resuscitation Status Full Code 08/15/14 10:20am Discharge Instructions No hospital discharge instructions. Additional Source Comments This clinical document has been generated using [employer] software that has been certified by the Office of the National Coordinator for Health Information Technology (ONC 15.99.04.3023.Diam.31.00.0.053330) and the National Committee for Heel [employer] (NCQA, as an eMeasure certified technology). FOR RECORDS PERTAINING TO PATIENTS WHO ARE OR HAVE BEEN ENROLLED IN A CHEMICAL D EPENDENCY/SUBSTANCE ABUSE PROGRAM, SOME INFORMATION MAY BE OMITTED. This clinica l summary was aggregated from multiple sources. Caution should be exercised in using it in the provision of clinical care. This summary normalizes information from multiple sources, and as a consequence, information in this document may ma terially change the coding, format and clinical context of patient data. In jessy tion, data may be omitted in some cases. CLINICAL DECISIONS SHOULD BE BASED ON T HE PRIMARY CLINICAL RECORDS. [employer] provides no warranty or guara ntee of the accuracy or completeness of information in this document.The followi ng information is based on time limited clinical information
--- OUTSIDE RECORDS SUMMARY | 2020-02-11 17:33 | XMS REPORT | Continuity of Care Document ---
Author Organization Unknown Address Unknown Phone Unavailable Allergies Active Description Code Type Severity Reaction Onset Reported/Identified Relationship to Patient Clinical Status Yes Tetanus Vaccines Toxoid [id number] Drug Allergy Unknown FLU SYMPTOMS 05/14/2012 Yes Tetanus Vaccines and Toxoid [id number] Drug Allergy Unknown FLU SYMPTOMS 05/14/2012 Yes No Known Drug Allergies [id number] Drug Allergy Unknown N/A 02/03/2020 Medications There [...] MD Ot 414. 01 CORONARY ATHEROSCLEROSIS OF [place] CORON 12/10/2012 SHAKIRA POLLARD MD Ot 414. 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 29 OTHER CHRONIC PAIN 03/28/2016 SARAH TO DC Ot 724. 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 29 OTHER CHRONIC PAIN 09/10/2016 ZULEIKA SHEPHERD, SARAH J Ot 724. 2 LUMBAGO 09/10/2016 DAVID THORNTON, SHARRON Smith Ot V72.84 EXAM PRE-OPERATIVE NOS 02/13/2017 COATS DO, NELLA J Ot R10.13 EPIGASTRIC PAIN 03/11/2017 COATS DO, NELLA J Ot R10.13 EPIGASTRIC PAIN 04/10/2017 COATS DO, NELLA J Ot R10.13 EPIGASTRIC PAIN 07/23/2018 CH[facility] TH[facility]NTON FACC[facility] Ot 272.4 HYPERLIPIDEMIA NEC/NOS 07/23/2018 CHANEL THORNTON [facility] CCD[facility] Ot 414.01 CORONARY ATHEROSCLEROSIS OF [place] CORON 07/23/2018 ZULEIKA SHEPHERD SARAH J Ot 338. 29 OTHER CHRONIC PAIN 07/23/2018 ZULEIKA SHEPHERD, SARAH J Ot 724. 2 LUMBAGO 07/23/2018 DAVID THORNTON, SHARRON Smith Ot V72.84 EXAM PRE-OPERATIVE NOS 07/23/2018 COATS DO, NELLA J Ot R10.13 EPIGASTRIC PAIN 12/29/2018 ZULEIKA SHEPHERD, SARAH J Ot 338. 29 OTHER CHRONIC PAIN 12/29/2018 ZULEIKA SHEPHERD SARAH J Ot 724. 2 LUMBAGO 12/29/2018 DAVID THORNTON, SHARRON Smith Ot V72.84 EXAM PRE-OPERATIVE NOS 12/29/2018 COATS DO, NELLA J Ot R10.13 EPIGASTRIC PAIN 05/05/2019 SHARRON HERNANDEZ MD Ot V72.84 EXAM PRE-OPERATIVE NOS 05/05/2019 COATS DO, NELLA J Ot R10.13 EPIGASTRIC PAIN 02/02/2020 COATS DO, NELLA J Ot R10.13 EPIGASTRIC PAIN 02/02/2020 COATS DO, NELLA J Ot R10.13 EPIGASTRIC PAIN 02/10/2020 COATS DO, NELLA J Ot R10.13 EPIGASTRIC PAIN 02/11/2020 PAULY VIEIRANELLA Ot R10.13 EPIGASTRIC PAIN Procedures There is no data. Results Test Result Range Complete blood count (CBC) with automate d white blood cell (WBC) differential - 02/10/20 12:38 Blood leukocytes automated count (number/volume) 4.5 10*3/uL 4.3-11.0 Blood erythrocytes automated count (number/volume) 4.80 10*6/uL 4.35-5.85 Venous blood hemoglobin measurement (mass/volume) 14.7 g/dL 13.3-17.7 Blood hematocrit (volume fraction) 45 % 40-54 Automated erythrocyte mean corpuscular volume 93 [ foz_us] 80-99 Automated erythrocyte mean corpuscular h emoglobin (mass per erythrocyte) 31 pg 25-34 Automated erythrocyte mean corpuscular h emoglobin concentration measurement (mass/volume) 33 g/dL 32-36 Automated erythrocyte distribution width ratio 14. 3 % 10.0- 14.5 Automated blood platelet count (count/volume) 161 10*3/uL 130-400 Automated blood platelet mean volume measurement 10.7 [foz_us] 7.4-10.4 Automated blood neutrophils/100 leukocytes 48 % 42-75 Automated blood lymphocytes/100 leukocytes 42 % 12-44 Blood monocytes/100 leukocytes 6 % 0-12 Automated blood eosinophils/100 leukocytes 3 % 0-10 Automated blood basophils/100 leukocytes 1 % 0-10 Blood neutrophils automated count (number/volume) 2.2 10*3 1.8-7.8 Blood lymphocytes automated count (number/volume) 1.9 10*3 1.0-4.0 Blood monocytes automated count (number/volume) 0. 3 10*3 0.0-1.0 Automated eosinophil count 0.1 10*3/uL 0 .0-0.3 Automated blood basophil count (count/volume) 0.0 10*3/uL 0.0-0.1 Methicillin resistant Staphylococcus aur eus (MRSA) screening culture - 02/10/20 12:38 Methicillin resistant Staphylococcus aureus (MRSA) scr eening culture NEG NRG Complete blood count (CBC) with automate d white blood cell (WBC) differential - 02/11/20 12:20 Blood leukocytes automated count (number/volume) 10.0 10*3/uL 4.3-11.0 Blood erythrocytes automated count (number/volume) 4.50 10*6/uL 4.35-5.85 Venous blood hemoglobin measurement (mass/volume) 13.9 g/dL 13.3-17.7 Blood hematocrit (volume fraction) 41 % 40-54 Automated erythrocyte mean corpuscular volume 92 [ foz_us] 80-99 Automated erythrocyte mean corpuscular h emoglobin (mass per erythrocyte) 31 pg 25-34 Automated erythrocyte mean corpuscular h emoglobin concentration measurement (mass/volume) 34 g/dL 32-36 Automated erythrocyte distribution width ratio 14. 5 % 10.0- 14.5 Automated blood platelet count (count/volume) 174 10*3/uL 130-400 Automated blood platelet mean volume measurement 10.5 [foz_us] 7.4-10.4 Automated blood neutrophils/100 leukocytes 79 % 42-75 Automated blood lymphocytes/100 leukocytes 13 % 12-44 Blood monocytes/100 leukocytes 8 % 0-12 Automated blood eosinophils/100 leukocytes 0 % 0-10 Automated blood basophils/100 leukocytes 0 % 0-10 Blood neutrophils automated count (number/volume) 7.9 10*3 1.8-7.8 Blood lymphocytes automated count (number/volume) 1.3 10*3 1.0-4.0 Blood monocytes automated count (number/volume) 0. 8 10*3 0.0-1.0 Automated eosinophil count 0.0 10*3/uL 0 .0-0.3 Automated blood basophil count (count/volume) 0.0 10*3/uL 0.0-0.1 Whole blood basic metabolic panel - 01/13 08/02 12:20 Serum or plasma sodium measurement (moles/volume) 137 mmol/L 135-145 Serum or plasma potassium measurement (moles/volume) 4.3 mmol/L 3.6-5.0 Serum or plasma chloride measurement (moles/volume) 101 mmol/L 98-107 Carbon dioxide 21 mmol/L 21-32 Serum or plasma anion gap determination (moles/volume) 15 mmol/L 5-14 Serum or plasma urea nitrogen measurement (mass/volume ) 19 mg/dL 7-18 Serum or plasma creatinine measurement (mass/volume) 1.27 mg/dL 0.60-1.30 Serum or plasma urea nitrogen/creatinine mass ratio 15 NRG Serum or plasma creatinine measurement w ith calculation of estimated glomerular filtration rate 54 NRG Serum or plasma glucose measurement (mass/volume) 142 mg/dL 70-105 Serum or plasma calcium measurement (mass/volume) 9.6 mg/dL 8.5-10.1 Complete urinalysis with reflex to cultu re - 02/11/20 13:24 Urine color determination YELLOW NRG Urine clarity determination SL CLOUDY N RG Urine pH measurement by test strip 6.0 5-9 Specific gravity of urine by test strip 1.025 1.016-1.022 Urine protein assay by test strip, semi-quantitative TRACE NEGATIVE Urine glucose detection by automated test strip NE GATIVE NEGATIVE Erythrocytes detection in urine sediment by light micr oscopy NEGATIVE NEGATIVE Urine ketones detection by automated test strip TR PERNELL NEGATIVE Urine nitrite detection by test strip NEGATIVE NEGATIVE Urine total bilirubin detection by test strip NEGA TIVE NEGATIVE Urine urobilinogen measurement by automated test strip (mass/volume) 0.2 mg/dL < = 1.0 Urine leukocyte esterase detection by dipstick NEG ATIVE NEGATIVE Automated urine sediment erythrocyte cou nt by microscopy (number/high power field) [HPF] NRG Automated urine sediment leukocyte count by microscopy (number/high power field) [HPF] NRG Bacteria detection in urine sediment by light microsco py TRACE NRG Crystals detection in urine sediment by light microsco py NONE NRG Casts detection in urine sediment by light microscopy PRESENT NRG Mucus detection in urine sediment by light microscopy MODERATE NRG Complete urinalysis with reflex to culture YES NRG Hyaline casts detection in urine sediment by light chandni roscopy 10-25 NRG Encounters ACCT No. Visit Date/Time Discharge Status Pt. Type Provider Facility Loc./Unit Complaint [id number] 02/11/2020 12:03:00 14:17:00 DIS Emergency CAITLYN LUGO APRN [facility] ER VOMITING;TROUBLE URINAT ING [id number] 02/10/2020 12:17:00 020 18:35:00 DIS Outpatient HOSEA LARA MD [facility] SDC LEFT INGUINAL HERNIA [id number] 02/07/2020 05:35:00 10:28:00 DIS Outpatient HOSEA LARA MD [facility] PREOP LEFT INGUINAL HERNIA [id number] 02/13/2017 14:08:00 017 23:59:59 CLS Outpatient PAULY VIEIRA NELLA Agarwal [facility] RAD R10.13 [id number] 08/15/2014 09:31:00 015 12:10:00 DIS Outpatient SHARRON HERNANDEZ MD [facility] SDC SCREENING [id number] 08/10/2014 06:08:00 015 23:59:59 CLS Outpatient SHARRON HERNANDEZ MD [facility] PREOP SCREENING [id number] 10/26/2013 10:08:00 014 23:59:59 CLS Outpatient SARAH TO DC [facility] RAD LOW BACK PAIN [id number] 02/12/2013 06:33:00 013 23:59:59 CLS Outpatient CHANEL THORNTON FACC, ENOC SHIN CC DS [facility] LAB STATIN RX,CAD,HYPERLIPIDEMIA [id number] 12/17/2012 15:27:00 013 23:59:59 CLS Outpatient DEBORAH WOO [facility] RAD RT OLIVERIN ARUNA CHRISTOPHER,S/P CATH [id number] 12/09/2012 00:40:00 013 15:00:00 DIS Outpatient SHAKIRA POLLARD MD [facility] CATH CHEST PAIN [id number] 05/25/2014 16:10:00 Document Registration [id number] 05/20/2012 06:00:00 Document Registration [id number] 05/14/2012 07:27:00 Document Registration [id number] 01/09/2012 06:08:00 Document Registration [id number] 01/08/2011 06:31:00 Document Registration [id number] 01/08/2011 06:20:00 Document Registration
== END 2020-02-11 14:17 | disposition home or self-care (01) ==
LOC: EDUNIT# 12:02 → ER 12:03
DX: N39.0 Urinary tract infection, site not specified (principal); T88.59XA Other complications of anesthesia, initial encounter; I10 Essential (primary) hypertension; E78.00 Pure hypercholesterolemia, unspecified; K21.9 Gastro-esophageal reflux disease without esophagitis; Z96.642 Presence of left artificial hip joint
CPT/HCPCS: 36415; 80048; 81000; 85025; 87088

== ENCOUNTER → 2021-08-24 | Outpatient (CLI) | payer MEDICARE, OTHER ==
[~2021-08-24] MED LIST changes: +CEFU250T80 PO; +ONDA8TAB13 PO
== END ==
LOC: LABNPT 06:47
PROVIDERS: ATTEND Emergency Medicine
DX: Z01.812 Encounter for preprocedural laboratory examination (principal); Z20.822 Contact with and (suspected) exposure to COVID-19
CPT/HCPCS: 87635

== ENCOUNTER 2022-01-09 14:46 | Outpatient (RCR) | payer MEDICARE, OTHER ==
[~2022-01-09 14:46] MED LIST changes: +ASPI-1238 PO; +GARL10002 PO; +LOSA25TA41 PO; +METO-333 PO; +NITR0.4T42 SL; +RANO500T3 PO; +ROSU20TA32 PO; +TICA90TA PO; +cranberry
== END 2022-01-10 | disposition home or self-care (01) ==
LOC: CR 14:46
PROVIDERS: ATTEND Internal Medicine Cardiovascular Disease
DX: Z29.8 Encounter for other specified prophylactic measures (principal); I25.2 Old myocardial infarction
CPT/HCPCS: 93798

== ENCOUNTER 2022-01-30 16:07 | Outpatient (RCR) | payer MEDICARE, OTHER | END 2022-02-10 | disposition home or self-care (01) | LOC: CR 16:07 | PROVIDERS: ATTEND Internal Medicine Cardiovascular Disease | DX: Z29.8 Encounter for other specified prophylactic measures (principal); I25.2 Old myocardial infarction | CPT/HCPCS: 93798 ==

== ENCOUNTER → 2022-02-08 | Outpatient (CLI) | payer MEDICARE, OTHER ==
[2022-02-08 08:43] LABS: BILIRUBIN,TOTAL 0.5 MG/DL (0.1-1.0); CALCIUM 9.5 MG/DL (8.5-10.1); CREATININE SERUM 1.11 MG/DL (0.60-1.30); POTASSIUM 4.2 MMOL/L (3.6-5.0); TOTAL PROTEIN 7.1 GM/DL (6.4-8.2)
== END ==
LOC: LAB 08:04
PROVIDERS: ATTEND Internal Medicine Cardiovascular Disease
DX: E78.2 Mixed hyperlipidemia (principal)
CPT/HCPCS: 36415; 80053; 80061

== ENCOUNTER → 2022-09-17 | Outpatient (CLI) | payer MEDICARE, OTHER | LOC: RAD 10:03 | PROVIDERS: ATTEND Internal Medicine | DX: M21.861 Other specified acquired deformities of right lower leg (principal) ==

== ENCOUNTER 2023-03-11 15:46 | Emergency (ER) | payer MEDICARE, OTHER ==
[~2023-03-11] VITALS: Ht 152 cm; Wt 65.7 kg
[~2023-03-11 15:46] MED LIST changes: -ROSU20TA32 PO; +ROSU20TA73 PO
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
[2023-03-11 16:23] LABS: BASOPHILS % (AUTO) 1 % (0-10); EOSINOPHILS # (AUTO) 0.1 10^3/uL (0.0-0.3); EOSINOPHILS % (AUTO) 2 % (0-10); HEMATOCRIT 41 % (40-54); HEMOGLOBIN 13.5 g/dL (13.3-17.7); LYMPHOCYTES # (AUTO) 2.2 10^3/uL (1.0-4.0); LYMPHOCYTES % (AUTO) 28 % (12-44); MEAN CORPUSCULAR HEMOGLOBIN 32 pg (25-34); MEAN CORPUSCULAR HGB CONC 33 g/dL (32-36); MEAN CORPUSCULAR VOLUME 95 fL (80-99); MEAN PLATELET VOLUME 10.6 fL (9.0-12.2); MONOCYTES # (AUTO) 0.6 10^3/uL (0.0-1.0); MONOCYTES % (AUTO) 8 % (0-12); NEUTROPHILS # (AUTO) 4.9 10^3/uL (1.8-7.8); NEUTROPHILS % (AUTO) 62 % (42-75); PLATELET COUNT 145 10^3/uL (130-400); WHITE BLOOD COUNT 7.9 10^3/uL (4.3-11.0)
[2023-03-11 16:28] LABS: INR 0.9 (0.8-1.4); PROTHROMBIN TIME PATIENT 12.6 SEC (12.2-14.7)
[2023-03-11] MEDS ORDERED: ANTACID SUSPENSION 30 ML UDC PO ONE (16:30)
[2023-03-11] MEDS ORDERED: LIDOCAINE 2% VISCOUS 15 ML UDC PO ONE (16:30)
[2023-03-11] MEDS ORDERED: ONDANSETRON INJECTION 4 MG/2 ML (SDV) IVP ONE (16:30)
--- NOTE | 2023-03-11 16:31 | Diagnostic Imaging Report ---
INDICATION: Chest pain and abdominal pain, history of myocardial infarction. TECHNIQUE/COMPARISON: A frontal chest was obtained at 4:12 PM and compared to 10/30/2021. FINDINGS: The heart is borderline in size. The aorta is tortuous. There is no focal infiltrate, pneumothorax, or pleural fluid. There is unchanged elevation of the left hemidiaphragm. IMPRESSION: Mild chronic findings as above with no acute process in the chest. Dictated by: Dictated on workstation # [id number]
[2023-03-11 16:33] LABS: ALBUMIN 4.1 GM/DL (3.2-4.5); CHLORIDE 100 MMOL/L (98-107); POTASSIUM 4.2 MMOL/L (3.6-5.0); SODIUM 137 MMOL/L (135-145)
[2023-03-11 16:34] LABS: CALCIUM 9.2 MG/DL (8.5-10.1)
[2023-03-11 16:35] LABS: GLUCOSE 114 MG/DL (70-105); TOTAL PROTEIN 7.1 GM/DL (6.4-8.2)
[2023-03-11 16:36] LABS: CARBON DIOXIDE 25 MMOL/L (21-32)
[2023-03-11 16:37] LABS: BILIRUBIN,TOTAL 0.5 MG/DL (0.1-1.0)
[2023-03-11 16:38] LABS: ALKALINE PHOSPHATASE 47 U/L (40-136)
[2023-03-11 16:39] LABS: CREATININE SERUM 1.09 MG/DL (0.60-1.30); GFR ESTIMATED 65
[2023-03-11 16:40] LABS: BUN/CREATININE RATIO 26
[2023-03-11 16:42] LABS: ALANINE AMINOTRANSFERASE 17 U/L (0-55); MAGNESIUM 2.3 MG/DL (1.6-2.4)
[2023-03-11 19:02] VITALS: BP 147/74
== END 2023-03-11 19:04 | disposition home or self-care (01) ==
LOC: EDUNIT# 15:46 → ER 15:51
DX: K21.9 Gastro-esophageal reflux disease without esophagitis (principal); I25.10 Atherosclerotic heart disease of native coronary artery without angina pectoris; I10 Essential (primary) hypertension; Z79.82 Long term (current) use of aspirin; Z79.02 Long term (current) use of antithrombotics/antiplatelets
CPT/HCPCS: 36415; 71045; 80053; 83690; 83735; 83874; 84484; 85025; 85610; 85730; 93005; 93041; 96374

== ENCOUNTER → 2023-03-21 | Outpatient (CLI) | payer MEDICARE, OTHER | LOC: CARD 10:25 | PROVIDERS: ATTEND Internal Medicine Cardiovascular Disease | DX: I35.1 Nonrheumatic aortic (valve) insufficiency (principal); I25.10 Atherosclerotic heart disease of native coronary artery without angina pectoris; I11.9 Hypertensive heart disease without heart failure | CPT/HCPCS: 93306 ==

== ENCOUNTER → 2023-04-23 | Outpatient (CLI) | payer MEDICARE, OTHER ==
[~2023-04-23] MED LIST changes: +CATHETER FLUSH 10 ML SYR IVP PRN; +REGADENOSON 0.4 MG/5 ML SYR IV ONE
[2023-04-23 09:43] VITALS: BP 162/93
--- NOTE | 2023-04-23 13:41 | Cardiology Stress Test Report ---
Stress Test Report Date of Procedure/Referring: Date of Procedure: Apr 23, 2023 PCP Nella Unger DO Admitting Physician Admitting Physician: Attending Physician: Francesco Durán MD Baseline Heart Rate: 87 Baseline Blood Pressure: Blood Pressure Systolic: 162 Blood Pressure Diastolic: 93 Baseline Vitals Vital Signs Date Time Temp Pulse Resp B/P (MAP) Pulse Ox O2 Delivery O2 Flow Rate FiO2 04/23/23 09:43 87 162/93 (116) Baseline EKG: Baseline EKG: RBBB Summary After explaining the procedure to the patient, he signed a consent and then brought to the stress nuclear laboratory. Patient received 0.4 mg Lexiscan for stress test, ECG, heart rate and blood pressure were monitored continuously. Resting and stress dose of radio tracer were injected, imaging was acquired and reviewed in short axis, horizontal long axis and vertical long axis views. TID: 1.16 SSS: 13 SDS: 0 EF: 54 Patient tolerated Lexiscan well Baseline right bundle branch block persisted during test Fixed defect involving the lateral wall could be due to breast attenuation, overall there is no significant ischemia or infarction noted Normal left ventricular size with mild hypokinesia of the lateral wall, ejection fraction 54% Copy Copies To 1: NELLA UNGER BASHAR J MD Apr 23, 2023 13:41
== END ==
LOC: CARD 08:30
PROVIDERS: ATTEND Internal Medicine Cardiovascular Disease
DX: I10 Essential (primary) hypertension (principal); I25.10 Atherosclerotic heart disease of native coronary artery without angina pectoris
CPT/HCPCS: 78452; 93017; A9502